=== PATIENT | male | born 1950 | race Caucasian/White ===

== ENCOUNTER 2020-12-26 10:21 | Observation (INO) ==
[2020-12-26] MEDS ORDERED: ONDANSETRON 4 MG/2 ML VIAL ONE (12:14)
[2020-12-26] MEDS ORDERED: PIPERACILLIN/TAZOBACTAM 3,375 MG in SODIUM CHLORIDE 0.9% 100 ML IV STA (12:16)
[2020-12-26] MEDS: SODIUM CHLORIDE 0.9% 1,000 ML IV STA ×4 (12:35→17:35)
[2020-12-26] MEDS ORDERED: ONDANSETRON 4 MG/2 ML VIAL IV STA (12:48)
[2020-12-26 12:50] LABS: Bilirubin,Urine Negative (Negative); Blood, Urine Moderate mg/dL (Negative); Glucose,Urine (UA) Negative (Negative); Ketones,Urine Negative (Negative); Mucus,Urine Occasional /LPF (Occasional); Nitrite,Urine Positive (Negative); Protein,Urine Negative; RBC,Urine 63 /HPF (0-4); Urine Appearance Slightly Hazy (Clear); Urine Color Yellow (Yellow); Urine Specific Gravity 1.015 (1.001-1.035); Urine Urobilinogen < 2.0 EU/DL (0.2-1.0)
[2020-12-26 12:54] LABS: Basophils % 0.1 % (0.0-0.8); Hematocrit 44.3 VOL% (42.0-52.0); Hemoglobin 15.4 GM/DL (14.0-18.0); Immature Granulocytes % 0.7 %; Immature Granulocytes Absolute 0.11 #; Lymphocytes # 0.4 10*3/uL (1.4-4.0); Lymphocytes % 2.6 % (21.2-54.2); Mean Corpuscular HGB Conc 34.8 GM/DL (32-36); Mean Corpuscular Volume 85.9 FL (87-102); Mean Platelet Volume 9.2 FL (9.6-12.0); Monocytes % 11.2 % (1.7-12.7); Neutrophils % 85.4 % (38.7-73.9); Platelet Count 153 T/CUMM (130-400); Red Blood Count 5.16 MC/CUMM (3.8-5.5); White Blood Count 15.8 T/CUMM (4-12)
[2020-12-26 13:17] LABS: Band Neutrophils 15 % (0-10); Eosinophils 1 % (0-10); Lymphocytes 3 % (20-55); Metamyelocytes 1 %; Platelet Estimate Normal; Segmented Neutrophils 69 % (50-85); Total Cells Counted 100
[2020-12-26 13:31] LABS: Alanine Aminotransferase 21 U/L (16-61); Albumin 3.8 G/DL (3.4-5.0); Alkaline Phosphatase 51 U/L (45-117); Aspartate Amino Transferase 19 U/L (0-37); Blood Urea Nitrogen 23 MG/DL (7-18); Carbon Dioxide 27 MMOL/L (21-32); Estimated Glom Filtration Rate 45 ML/MIN; Glucose 140 MG/DL (74-106); Osmolality,Calculated 278.8 MOS/KG (273-304); Potassium 3.9 MMOL/L (3.5-5.1); Sodium 137 MMOL/L (136-145)
[2020-12-26] MEDS ORDERED: SIMETHICONE CHEW 125 MG TABLET PO PRN (13:55)
[2020-12-26] MEDS ORDERED: PROMETHAZINE 25 MG/1 ML VIAL IM PRN (13:55)
[2020-12-26] MEDS ORDERED: diphenhydrAMINE 50 MG/1 ML VIAL IV PRN (13:55)
[2020-12-26] MEDS ORDERED: ONDANSETRON 4 MG/2 ML VIAL IV PRN (13:55)
[2020-12-26] MEDS ORDERED: oxyCODONE/ACETAMINOPHEN 5-325 MG TABLET PO PRN (13:55)
[2020-12-26] MEDS ORDERED: SODIUM CHLORIDE 0.9% 100 ML IV ONE (13:57)
[2020-12-26] MEDS ORDERED: cefTRIAXone 1,000 MG VIAL ONE (13:57)
[2020-12-26] MEDS ORDERED: cefTRIAXone 1,000 MG in SODIUM CHLORIDE 0.9% 100 ML IV SCH (14:00)
[2020-12-26] MEDS: ACETAMINOPHEN 325 MG TABLET PO SCH ×2 (14:05→19:03)
[2020-12-26] MEDS ORDERED: SODIUM CHLORIDE 0.9% 2,650 ML IV ONE (14:09)
[2020-12-26] MEDS: LEVOFLOXACIN INJ 500 MG/100 ML PREMIX IV SCH (14:30)
[2020-12-26] MEDS: SODIUM CHLORIDE 0.9% 1,000 ML IV SCH (17:33)
[2020-12-26] MEDS: TAMSULOSIN 0.4 MG CAPSULE PO SCH (21:24)
[2020-12-27] MEDS: ACETAMINOPHEN 325 MG TABLET PO SCH ×4 (02:00→21:15)
[2020-12-27] MEDS: SODIUM CHLORIDE 0.9% 1,000 ML IV SCH ×2 (03:03→06:00)
[2020-12-27 05:32] LABS: Basophils % 0.1 % (0.0-0.8); Hematocrit 35.8 VOL% (42.0-52.0); Hemoglobin 12.3 GM/DL (14.0-18.0); Immature Granulocytes % 0.4 %; Immature Granulocytes Absolute 0.04 #; Lymphocytes # 0.6 10*3/uL (1.4-4.0); Lymphocytes % 6.9 % (21.2-54.2); Mean Corpuscular HGB Conc 34.4 GM/DL (32-36); Mean Corpuscular Volume 87.5 FL (87-102); Mean Platelet Volume 8.9 FL (9.6-12.0); Monocytes % 8.9 % (1.7-12.7); Neutrophils % 83.7 % (38.7-73.9); Platelet Count 114 T/CUMM (130-400); Red Blood Count 4.09 MC/CUMM (3.8-5.5); Red Cell Distribution Width 13.4 % (9.3-17.3); White Blood Count 9.1 T/CUMM (4-12)
[2020-12-27 05:50] LABS: Calcium 7.6 MG/DL (8.5-10.1); Osmolality,Calculated 282.4 MOS/KG (273-304); Potassium 3.8 MMOL/L (3.5-5.1)
[2020-12-27] MEDS: TAMSULOSIN 0.4 MG CAPSULE PO SCH ×2 (08:58→21:15)
[2020-12-27] MEDS: LEVOFLOXACIN INJ 500 MG/100 ML PREMIX IV SCH (14:18)
[2020-12-27] MEDS: FINASTERIDE 5 MG TABLET PO SCH (18:56)
[2020-12-28] MEDS: ACETAMINOPHEN 325 MG TABLET PO SCH ×3 (02:44→14:48)
[2020-12-28 06:41] LABS: Basophils % 0.2 % (0.0-0.8); Eosinophils # 0.1 10*3/uL (0.0-0.87); Eosinophils % 1.1 % (0.00-10.9); Hematocrit 40.7 VOL% (42.0-52.0); Hemoglobin 14.1 GM/DL (14.0-18.0); Immature Granulocytes % 0.4 %; Immature Granulocytes Absolute 0.03 #; Lymphocytes # 1.4 10*3/uL (1.4-4.0); Lymphocytes % 16.8 % (21.2-54.2); Mean Corpuscular HGB Conc 34.6 GM/DL (32-36); Mean Corpuscular Volume 86.6 FL (87-102); Mean Platelet Volume 9.4 FL (9.6-12.0); Monocytes % 13.4 % (1.7-12.7); Neutrophils % 68.1 % (38.7-73.9); Platelet Count 132 T/CUMM (130-400); Red Cell Distribution Width 13.3 % (9.3-17.3); White Blood Count 8.1 T/CUMM (4-12)
[2020-12-28 06:53] LABS: Calcium 8.4 MG/DL (8.5-10.1); Osmolality,Calculated 283.3 MOS/KG (273-304); Potassium 4.2 MMOL/L (3.5-5.1)
[2020-12-28 06:58] LABS: Platelet Estimate Normal
[2020-12-28] MEDS: LEVOFLOXACIN INJ 500 MG/100 ML PREMIX IV SCH (08:34)
[2020-12-28] MEDS: FINASTERIDE 5 MG TABLET PO SCH (08:34)
[2020-12-28] MEDS: TAMSULOSIN 0.4 MG CAPSULE PO SCH (08:34)
[2020-12-28 16:25] VITALS: BP 126/62
[2020-12-28] MEDS ORDERED: AMOXICILLIN 875 MG TABLET PO SCH (21:00)
== END 2020-12-28 17:55 | disposition home or self-care (01) ==
LOC: N.EDINP 10:21 → N.ED 10:21 → N.5E 14:47
PROVIDERS: ADMIT Surgery; ATTEND Surgery